=== PATIENT | female | born 1990 | race Caucasian/White ===

== ENCOUNTER 2017-06-07 08:40 | Inpatient (IN) ==
--- OUTSIDE RECORDS SUMMARY | 2017-06-09 10:13 | External Medical Summary | Continuity of Care Document ---
:1990 Author Organization [facility] Address [address] [place], [place] [id number] Phone Care Team Providers Name Role Phone Alek Early DO Unavailable Unavailable Allergies, Adverse Reactions, Alerts Substance Reaction Severity Status No Known Drug Allergies Unknown Active Medications Medication Instructions Dosage Effective Dates Status Comments (start - stop) Tums 200 mg - Active calcium (500 mg) chewable tablet 27 mg-0.8 take 1 tablet by Not Available - Active mg tablet oral route every day albuterol sulfate inhale 2 puff by - Active HFA 90 inhalation route mcg/actuation every 4 - 6 hours as aerosol inhaler needed Zyrtec 10 mg as needed - Active capsule Problems Condition Effective Dates (start - stop) Clinical Status Encounter for suprvsn of normal - , second trimester 24 weeks gestation of - Previous Low Transverse - Encounter for suprvsn of normal - , first trimester 12 weeks gestation of - Maternal care for excess growth, - second tri, unsp 16 weeks gestation of - Irregular Menses Lower abdominal pain, unspecified Previous Low Transverse - Encounter for suprvsn of normal - , second trimester 20 weeks gestation of - Personal history of endo, nutritional - and metabolic disease Previous Low Transverse - Maternal care for excess growth, - second tri, unsp 20 weeks gestation of - Laceration w/o foreign body of vagina and vulva, init encntr 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) w/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 [facility] [place], , second 7 700 [address] [id number] weeks Medical 1522, gestation of [facility], [facility] Kj Anthony, 120, [id number], [facility] [place], tel:[phone] , [place]. tel: [phone] [facility] [place] Previous Low Aug-2 Patel In Womens Transverse 1-201 Yasmine. [facility] [place], C-SectionEncounte 7 700 PO Box r for suprvsn of Medical 1522, normal , [facility], [facility] Kj Anthony, weeks 120, [id number], gestation of [facility] pregnancyPersonal [place], tel:[phone] history of endo, [id number] nutritional and , [place]. metabolic disease tel: [phone] [facility] [place] Previous Low Aug-2 Patel In Womens Ultrasound Transverse 1-201 Yasmine. [facility] [place], C-SectionMaternal 7 700 PO Box care for excess Medical 1522, growth, [facility], [facility] emanuel, Kj Anthony, unsp20 weeks 120, [id number], gestation of [facility] [place], tel:[phone] , [place]. tel: [phone] [facility] [place] Maternal care for Dec-2 Patel In Womens excess 4-201 Yasmine. Health [place], growth, second 7 700 PO Box tri, [email or web address] weeks Medical 1522, gestation of [facility], Kj Anthony, 120, , [place], [place], tel:[phone] , [place]. tel: [phone] [facility] [place] Previous Low Kai-2 Patel In Womens Transverse 6-201 Yasmine. Health [place], C-SectionEncounte 7 700 PO Box r for suprvsn of Medical 1522, normal , [facility], first [id number] Kj Anthony, weeks gestation 120, , of [place], tel:[phone] , [place]. tel: [phone] [facility] [place] Irregular October-2 Roberto In Womens MensesLower 5-201 Gladis. [facility] [place], abdominal pain, 7 700 PO Box unspecified Medical 1522, [place] [facility], Kj Anthony, 120, , [place], [place], tel:[phone] , [place]. tel: [phone] [facility] [place] Laceration w/o Jun- Patel In Womens foreign body of 0-201 Yasmine. [facility] [place], vagina and vulva, 7 700 PO Box init encntr [facility] 1522, [place], Kj Anthony, 120, [id number], [place], tel: [phone] , [place]. tel: [phone] [facility] [place] for meals on wheels driver Kai-2 Patel In Womens exam (general) 4-201 Yasmine. Health [place], (routine) w/o abn 6 700 PO [facility], for initial [facility], prescription of jK Anthony, contraceptive 120, , pillsEncounter [facility] for surveillance [place], tel:+ of other [phone] [facility] , . ounter for tel: surveillance of [phone] other contraceptives [facility] [place] Apr-0 Patel Referring In Womens 3-201 Yasmine. Provider: [facility] [place], 4 700 Alek PO Box Medical [place], 1522, [address] [place], [place], 120, [address], [id number], [facility], Center, tel:[phone] [place], [id number] , . [id number]. tel: tel:[phone] Rosa Isela [place] Jul- Patel Referring In Womens 4-201 Yasmine. Provider: Apolinar BARRERA, 4 700 Alek Gao Medical [place], 1522, Center [address] [place], Kj [place], 120, [address], [id number], [facility], Center, tel:[phone] [place], [id number] , . [id number]. tel: tel:[phone] Family History Family Member Diagnosis Age At Onset Maternal Grandfather Cardiovascular Disease No family history of Breast Cancer No family history of Colon Cancer Maternal Grandmother Lung Disease Mother Lung Disease No family history of Stroke Mother Osteoporosis No family history of Thrombosis No family history of Ovarian Cancer Maternal Grandmother Uterine Cancer Paternal Grandfather Cardiovascular Disease Immunizations Vaccine Date Status Comments Unknown Payers Payer name Insurance type Covered green party ID Authorization(s) Benef[employer] Administrative Systems [facility] CI [id number] [employer] - Medicaid MC [id number] [facility] CI [id number] Social History Type Description Quantity Date Captured Alcohol Use Details No Caffeine Use Details Unknown Tobacco Use Status Smoking Status Former smoker Vital Signs Date / Height Weight BMI Pulse Blood Temperature Respiratory Body Head BMI Time: Rate Pressure Rate Surface Circumference percentile Area 191.70 31.9 106/ lbs 0 mm[Hg] 3:51 kg/m PM eter (2) Chief Complaint And Reason For Visit Unknown Chief Complaint And Reason For Visit Reason For Referral Reason For Referral Unknown Plan Of Care Date Type Action Status Goal Lifestyle education regarding completed diet Appointment Mahsa Lemos BOOKED Future Order: Radiology Order Complete OB Ultrasound > 14 Ordered Weeks ([id number]) Date Type Problem Goal Intervention Status Start Date Unknown. History Of Present Illness Encounter Date Complaint History Of Present Illness This patient has no known history of present illness Functional Status Encounter Date Functional Assessment Cognitive Assessment Unknown Medications Administered Medication Instructions Dosage Effective Dates (start - stop) Status Comments Drug Treatment Unknown Instructions Date Instruction Additional Information HIV and other routine tests risk factors identified by history anticipated course of care nutrition and weight gain counseling, special diet toxoplasmosis precautions (cats / raw meat) exercise indications for ultrasound environmental / work hazards travel tobacco (ask, advise, assess, assist and arrange) alcohol illicit / recreational drugs use of any medications (including supplements, vitamins, herbs, OTC drugs) smoking counseling domestic violence seat belt use genetic testing new ob handbook Zika virus assessment & precautions Giving encouragement to exercise Related to Body mass index 29.0-29.9 Lifestyle education regarding diet Related to Body mass index 29.0-29.9 HIV and other routine tests risk factors identified by history anticipated course of care nutrition and weight gain counseling, special diet toxoplasmosis precautions (cats / raw meat) exercise indications for ultrasound influenza vaccine environmental / work hazards travel tobacco (ask, advise, assess, assist and arrange) alcohol illicit / recreational drugs use of any medications (including supplements, vitamins, herbs, OTC drugs) smoking counseling domestic violence seat belt use genetic testing new ob handbook risks Zika virus assessment & precautions
--- OUTSIDE RECORDS SUMMARY | 2017-06-09 10:13 | External Medical Summary | Continuity of Care Document ---
:1990 Author Organization [facility] Address [address] [place], [place] [phone] Phone Care Team Providers Name Role Phone [...] 10 mg as needed - Active capsule Benadryl 25 mg take 2 capsule by 50 MG - Active capsule oral route every 4 - 6 hours as needed Problems Condition Effective Dates (start - stop) Clinical Status Abnormal ultrasonic finding on - screening of mother Previous Low Transverse - 31 weeks gestation of - Previous Low Transverse - Encounter for suprvsn of normal - , first trimester 12 weeks gestation of - Maternal care for excess growth, - second tri, unsp 16 weeks gestation of - Previous Low Transverse - Encounter for suprvsn of normal - , third trimester 29 weeks gestation of - Irregular Menses Lower abdominal pain, unspecified Abnormal ultrasonic finding on - screening of mother 33 weeks gestation of - Abnormal ultrasonic finding on - screening of mother Previous Low Transverse - Encounter for suprvsn of normal - , third trimester 31 weeks gestation of - Previous Low Transverse - Encounter for suprvsn of normal - , second trimester 20 weeks gestation of - Personal history of endo, nutritional - and metabolic disease Previous Low Transverse - Maternal care for excess growth, - second tri, unsp 20 weeks gestation of - Laceration w/o foreign body of vagina and vulva, init encntr 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 Encounter for initial prescription of contraceptive pills Encounter for surveillance of other - contraceptives Encounter for surveillance of other contraceptives Encounter for suprvsn of normal - , second trimester 24 weeks gestation of - Dysuria - Active Procedures Procedure Date Ultrasnd preg uterus, flwup/repeat Results Test Name Date and Time Measure Units Reference Range Abnormal Flag Comments Unknown Advance Directives Directive Yes / No Effective Date File Name Unknown Encounters Encounter Practice Location Reason(s) Diagnoses Date Provider Care Team Description For Visit Members [facility] Abnormal Nov-2 Patel In Womens ultrasonic 0-201 Yasmine. Apolinar BARRERA, finding on 7 700 PO Box Medical 1522, screening of [facility], [id number] weeks Kj Anthony, gestation of 120, , [place], [place], tel:[phone] , [place]. tel:[phone] Rosa Isela [place] Abnormal Nov-0 [place] Referring In Womens ultrasonic 6-201 Darrian. Provider: Apolinar BARRERA, finding on 7 700 Yasmine Patel PO Box Medical [place], 700 1522, screening of [facility], [address], [address] [place], Low Transverse [address], , C-SectionEncounte 120, [place], r for suprvsn of [place], [place], tel:+ normal , [place], . third [id number], tel:[phone] weeks gestation [place]. [id number] of tel: [phone] [facility] [place] Abnormal Nov-0 Patel In Womens Ultrasound ultrasonic 6-201 Yasmine. Health [place], finding on 7 700 PO Box Medical 1522, screening of [facility], motherPrevious Kj Anthony, Low Transverse 120, [id number], [id number] weeks [place], gestation of [place], tel: , [place]. tel: [phone] [facility] [place] Previous Low Oct-2 Patel In Womens Transverse 0-201 Yasmine. Health [place], C-SectionEncounte 7 700 PO Box r for suprn [facility] 1522, normal , [facility], third [id number] Kj Anthony, weeks gestation 120, , of [facility] JANAE, tel:[phone] , [place]. tel: [phone] [facility] [place] Encounter for Sep-1 Patel In Womens suprvsn of normal 8-201 Yasmine. Health [place], , second 7 700 PO Box [id number] weeks Medical 1522, gestation of [facility], Kj Anthony, 120, [id number], [facility] [place], tel:[phone] , [place]. tel: [phone] [facility] [place] Previous Low Aug-2 Patel In Womens Transverse 1-201 Yasmine. Health [place], C-SectionEncounte 7 700 PO Box r for suprvsn of Medical 1522, normal , [facility], second Kj Anthony, [id number] weeks 120, [id number], gestation of [facility] pregnancyPersonal [place], tel:[phone] history of endo, nutritional and , [place]. metabolic disease tel: [phone] [facility] [place] Previous Low Aug-2 Patel In Womens Ultrasound Transverse 1-201 Yasmine. Health [place], C-SectionMaternal 7 700 PO Box care for excess Medical 1522, growth, [facility], second tri, Kj Anthony, unsp20 weeks 120, [id number], gestation of [facility] [place], tel:[phone] , [place]. tel: [phone] [facility] [place] Maternal care for Mat- Patel In Womens excess 4-201 Yasmine. Health [place], growth, second 7 700 PO Box tri, [id number] weeks Medical 1522, gestation of [facility], Kj Anthony, 120, , [place], tel:[phone] [address] , [place]. tel: [phone] [facility] [place] Previous Low Kai-2 Patel In Womens Transverse 6-201 Yasmine. Health [place], C-SectionEncounte 7 700 PO Box r for suprvsn of Medical 1522, normal , [facility], first [id number] Kj Anthony, weeks gestation 120, [id number], of [place], [place], tel:[phone] , [place]. tel: [phone] [facility] [place] Irregular October- Roberto In Womens MensesLower 5-201 Gladis. Health [place], abdominal pain, 7 700 PO Box unspecified Medical 1522, [address] [place], 120, [id number], [place], [place], tel:[phone] , [place]. tel: [phone] [facility] [place] Laceration w/o Jun- Patel In Womens foreign body of 0-201 Yasmine. Health [place], vagina and vulva, 7 700 PO Box init encntr Medical 1522, [address] [place], 120, [id number], [place], tel:[phone] , [place]. 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 Health [place], (routine) w/o abn 6 700 [facility], for initial [facility] [place], sachi of Kj Anthony, contraceptive 120, [id number], pillsEncounter [facility] for surveillance [place], tel:[phone] of other [phone] [id number] [facility]. ounter for tel: surveillance of [phone] other contraceptives [facility] [place] Sep- Patel Referring In Womens 3-201 Yasmine. Provider: Apolinar BARRERA, 4 700 Alek Box Medical [place], 1522, Center [address] [place], Kj [place], 120, [address], [id number], [facility], Center, tel:[phone] [facility]. [id number]. tel: tel:[phone] [facility] [place] Jul- Patel Referring In Womens 4-201 Yasmine. Provider: Apolinar BARRERA, 4 700 Alek [facility] Medical [place], 1522, Center [address] [place], Kj [place], 120, [address], [id number], [facility], Center, tel:[phone] [facility]. [id number]. tel: tel:[phone] Family History Family Member Diagnosis Age At Onset Maternal Grandfather Cardiovascular Disease No family history of Breast Cancer No family history of Colon Cancer Maternal Grandmother Lung Disease Mother Lung Disease No family history of Stroke Mother Osteoporosis No family history of Thrombosis No family history of Ovarian Cancer Maternal Grandmother Uterine Cancer Paternal Grandfather Cardiovascular Disease Immunizations Vaccine Date Status Comments Tdap completed Source: New Immunization Record Payers Payer name Insurance type Covered democrat ID Authorization(s) [employer] CI [id number] [employer] [place] [employer] - Medicaid MC [id number] [facility] [id number] [employer] [facility] CI [id number] [employer] CI [id number] [employer] [place] [employer] - Medicaid MC [id number] Social History Type Description Quantity Date Captured Unknown Vital Signs Date / Height Weight BMI Pulse Blood Temperature Respiratory Body Head BMI Time: Rate Pressure Rate Surface Circumference percentile Area Unknown Chief Complaint And Reason For Visit Unknown Chief Complaint And Reason For Visit Reason For Referral Reason For Referral Unknown Plan Of Care Date Type Action Status Goal Lifestyle education regarding completed diet Appointment Mahsa Lemos BOOKED Appointment Mahsa Lemos BOOKED Appointment Mahsa Lemos BOOKED Appointment Mahsa Lemos BOOKED Appointment Mahsa Lemos BOOKED Appointment Mahsa Lemos [facility] C/[facility], PPTL BOOKED Future Order: Radiology Order Ultrasound OB Follow-up ([id number]) Ordered Future Order: Radiology Order Complete OB Ultrasound > 14 Ordered Weeks ([id number]) Date Type Problem Goal Intervention Status Start [...]
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
[2017-06-09 10:33] VITALS: BMI 32.6
[2017-06-09] MEDS ORDERED: NOZIN NASAL SWAB NAS ONE (10:33)
[2017-06-09] MEDS ORDERED: CEFAZOLIN PREMIX (MC ONLY) 2 GM/50 ML BAG IV ONE (10:33)
[2017-06-09] MEDS ORDERED: FAMOTIDINE PB 20 MG/50 ML BAG IV ONE (10:33)
[2017-06-09] MEDS ORDERED: CITRIC ACID/SODIUM CITRATE 30ml PO ONE (10:33)
[2017-06-09] MEDS: LR 1,000 ML IV SCH ×2 (10:56→12:31)
[2017-06-09] MEDS ORDERED: FentaNYL 100 MCG/2 ML INJECTION ONE (11:32)
[2017-06-09] MEDS ORDERED: MORPHINE SULFATE PF 5mg/10ml INJ (Duramorph) ONE (11:32)
[2017-06-09] MEDS ORDERED: PHENYLEPHRINE INJ 10 MG/ML VIAL IV ONE (11:34)
[2017-06-09] MEDS ORDERED: ONDANSETRON 4 MG/2 ML INJECTION ONE (11:35)
--- NOTE | 2017-06-09 11:56 | Anesthesia Preoperative Report ---
Anesthesia Epidural/Spinal Rec - Date and Time Date: 06/09/17 Preoperative Diagnosis: Repeat C section Procedure: Plan: Spinal - Vital Signs Vital Signs: Temperature 98.4 F 06/09/17 10:43 Pulse Rate 83 06/09/17 10:43 Respiratory Rate 18 06/09/17 10:43 Blood Pressure 129/69 06/09/17 10:43 Pulse Oximetry 99 06/09/17 10:43 /Para: P:2 - Medictaions & Allergies Inpatient Medications: Current Medications Lactated Ringer's (Lactated Ringers) 1,000 mls @ 999 mls/hr IV .Q1H1M [facility] Last Admin: 06/09/17 10:56 Dose: 999 mls/hr Oxytocin (Pitocin Bolus Bag) 30 unit in 500 mls @ 999 mls/hr IV .Q31M [facility] Stop: 06/09/17 12:15 Allergies/Adverse Reactions: Allergies Allergy/AdvReac Type Severity Reaction Status Date / Time hydrocodone AdvReac Intermediate N/V Verified 06/09/17 10:31 Sulfa (Sulfonamide AdvReac nausea and Verified 06/09/17 10:31 Antibiotics) dizziness - Home Medications Home Medications: Home Medications Medication Instructions Recorded Confirmed Type Docosahexanoic Acid [ Dha] 1 cap PO DAILY #0 cap 03/04/14 History albuterol sulfate HFA 90 1 puff INHALATION Q6H 11/22/16 History mcg/actuation aerosol inhaler Benadryl 05/24/17 History Tylenol 05/24/17 History - Medical History Respiratory: Reports: Asthma (allergy related) Gastrointestional: Reports: Other (IBS) Neuro/Musculoskeletal: Reports: Depression Other History: Reports: Now - Surgical History HEENT Surgeries: Reports: Tonsillectomy, Other (Adenoidectomy) Reproductive Surgery/Treatment: Reports: Section - Social History Smoking Status: Former smoker Second Hand Exposure: No Substance Use Type: does not use Alcohol Intake: former Alcohol Intake Frequency: does not drink Hx Chewing Tobacco Use: No - Pertinent Findings Lab Data: CBC and BMP 06/09/17 10:55 EKG Rhythm: Normal Sinus Rhythm - Physical Exam Respiratory Exam: lungs clear Cardiovascular Exam: regular rate and rhythm - Airway Assessment Mallampati Score: II TMD: 3 Fingerbreadths Neck Extension: good Overall Assessment: may be difficult intubation - ASA ASA Score: 2 - Discussion Discussion: Discussed risks/options/alternatives of anesthesia and questions answered. Patient consents. Nursing pain assessment noted. Anesthesia Discussion: spouse Attestation Statement: Prior to the delivery of any anesthetic medication, I examined the patient, developed the plan, obtained the patient's consent and discussed the risk and benefits of the procedure with the patient/guardian.
[2017-06-09] MEDS: TRANEXAMIC ACID 1,000 MG in NS 100 ML IV ONE (12:10)
[2017-06-09] MEDS ORDERED: SALINE FLUSH 10ml SYRINGE ONE (12:29)
[2017-06-09] MEDS: OXYTOCIN BOLUS BAG 30 UNIT/500 ML ML IV SCH ×2 (12:32→13:02)
[2017-06-09] MEDS ORDERED: NALBUPHINE 10 MG/ML INJECTION IVP PRN (12:46)
[2017-06-09] MEDS ORDERED: METOCLOPRAMIDE 10mg/2ml INJECTION IVP PRN (12:46)
[2017-06-09] MEDS ORDERED: DiphenhydrAMINE 50 MG/ML INJECTION IVP PRN (12:46)
[2017-06-09] MEDS ORDERED: NALOXONE 2 MG/2 ML INJECTION PFS IVP PRN (12:46)
[2017-06-09] MEDS ORDERED: ONDANSETRON 4 MG/2 ML INJECTION IVP PRN (12:46)
[2017-06-09] MEDS ORDERED: ACETAMINOPHEN 500 MG TABLET PO PRN (13:15)
[2017-06-09] MEDS ORDERED: OXYTOCIN DRIP 30 UNIT/500 ML ML IV SCH (13:15)
[2017-06-09] MEDS ORDERED: MEASLES-MUMPS-RUBELLA VACCINE 0.5ml INJECTION SQ ONE (13:15)
[2017-06-09] MEDS ORDERED: HYDROCORTISONE 2.5% CREAM 30gm RECTALLY PRN (13:15)
[2017-06-09] MEDS ORDERED: CALCIUM CARBONATE Chewable 500mg TABLET PO PRN (13:15)
[2017-06-09] MEDS ORDERED: DiphenhydrAMINE 25 MG CAPSULE PO PRN (13:15)
[2017-06-09] MEDS ORDERED: D5LR 1,000 ML IV SCH (13:15)
[2017-06-09] MEDS: IBUPROFEN 800 MG TABLET PO PRN (15:13)
[2017-06-09] MEDS: Oxycodone/Acetaminophen 5/325 1 TAB PO PRN ×2 (16:07→20:50)
[2017-06-09] MEDS: SIMETHICONE 80 MG CHEWABLE TABLET PO SCH ×4 (17:13→23:32)
[2017-06-09] MEDS ORDERED: INFLUENZA VAC QIV 2017-18 (Fluarix*)(>=3yo) 0.5ml IM ONE (17:15)
[2017-06-09] MEDS ORDERED: INFLUENZA VAC. INJ. ADMIN CHARGE INJ ONE (17:18)
--- NOTE | 2017-06-09 18:02 | Anesthesia Postoperative Note ---
- Date and Time Date: 06/09/17 Time: 17:55 - Status Patient Participated in Evaluation: Patient Participated in Person Vital Signs: Temperature 98.0 F 06/09/17 17:05 Pulse Rate 89 06/09/17 17:05 Respiratory Rate 16 06/09/17 17:05 Blood Pressure 111/65 06/09/17 17:05 Pulse Oximetry 98 06/09/17 17:05 Respiratory Function: Airway Patent, Regular Respirations Cardiovascular Function: Regular Pulse Mental Status: Alert and Oriented Pain Intensity: 0 Hydration: Taking PO Fluids Complications During Recover: None Apparent Post Anesthesia Care Notes: moves lower extremeties without problems - Follow-Up Instructions Instructions: Per Surgeon
[2017-06-10] MEDS: IBUPROFEN 800 MG TABLET PO PRN ×3 (00:33→17:19)
[2017-06-10] MEDS: Oxycodone/Acetaminophen 5/325 1 TAB PO PRN ×6 (02:13→23:41)
--- NOTE | 2017-06-10 08:25 | Operative Note ---
DATE OF PROCEDURE 06/09/2017 PREOPERATIVE DIAGNOSES 1. 26-year-old, 4, para 2, at 40 weeks gestational age. 2. Previous x 2. 3. Desires permanent sterilization. POSTOPERATIVE DIAGNOSES 1. 26-year-old 4, para 2 at 40 weeks gestational age. 2. Previous x 2. 3. Desires permanent sterilization. 4. Pelvic adhesions. PROCEDURE 1. Repeat low transverse section. 2. tubal ligation via modified Yuly method. SURGEON Dr. Yasmine Patel CNC MECHANIC Dr. Darrian Kwan ANESTHESIA Spinal by Nathan Blair CRNA COMPLICATIONS None. EBL 800 ml FINDINGS Viable male infant, cephalic OP position, clear fluids, Apgars 8/9, weight 3606 g. The name is undecided at this point. There was a significant amount of adhesions in both the fascial layer as well as adhesions of the omentum to the bladder and peritoneal adhesions to the anterior uterus. There was a large pillar of adhesions from the anterior peritoneum to the anterior mid uterus. Normal-appearing tubes and ovaries. DESCRIPTION OF PROCEDURE The patient was taken to the operating room where anesthesia was obtained. She was placed in the dorsal supine position with a leftward tilt and a Gomes catheter was placed. She was given a dose of tranexamic acid due to her history of hemorrhage with her last . She was prepared and draped in the normal sterile fashion. A skin incision was made through her previous incision which was lower than a typical Pfannenstiel incision. This was carried down to the fascia. The fascia was incised in the midline and extended laterally with the Parada scissors. The tissue was very thickened in this layer. The fascia was elevated and the underlying rectus muscles were dissected off with a scalpel due to the dense adhesions. The peritoneum was entered sharply. The peritoneal adhesions were dissected off of the anterior uterus. Two Susan' s were placed across the large pillar of adhesions. This was transected. Each end of the pillar was ligated with chromic and good hemostasis was noted. The bladder adhesions were carefully dissected off of the anterior uterus with the Metzenbaum scissors. The bladder blade was inserted. The lower uterine segment was incised layer by layer with the scalpel and bluntly extended. I placed the incision a little higher on the uterus than her last due to the history of varicosities of the uterus. Fortunately, we did not encounter those this time. The membranes were ruptured. The infant' s head was delivered atraumatically. The nose and mouth were suctioned. The cord was clamped and cut. The was handed to Dr. Saucedo. The placenta delivered spontaneously. The uterus was exteriorized and cleared of all clots and debris. The uterine incision was closed with running locked O Monocryl. Good hemostasis was noted. The right fallopian tube was identified and carried out to the fimbriae. An avascular segment was ligated with chromic. Each end of the segment was also ligated with chromic. The tube segment was excised with good hemostasis noted. This was repeated on the patient's left fallopian tube. The uterus was returned to the abdomen. The gutters were cleared of all clots and debris. The uterus was still hemostatic. Due to the extensive adhesions we placed a piece of Interceed. The peritoneum was then closed with running 2-0 Vicryl. In the lower half of this area the peritoneum had been obliterated, so I reapproximated the rectus muscles in the midline. Hemostasis was obtained in the rectus muscles with the cautery. The fascia was closed with O Vicryl. Hemostasis was obtained in the subcutaneous tissue with the cautery. The subcutaneous tissue on the superior half of the incision was undermined to help release some of the scar tissue . Madeline's fascia was closed with running 2-0 chromic. The skin was closed with 4-0 Vicryl in a subcuticular manner. Steri- Strips were placed. Sponge, sharp and instrument counts were correct. HAY
--- NOTE | 2017-06-10 08:25 | OB/GYN Progress Note ---
OB-PP Progress Note - General PPD1 Maternal Group B Strep: Negative Maternal blood type: O+ Maternal Rubella Status: Not Immune - Subjective Date: 06/10/17 Lochia: Minimal Pain: controlled Voiding: eric still in place Nausea or Vomiting Present: No - Objective Vital Signs: Last Vital Signs Temp 98.0 F 06/10/17 04:29 Pulse 80 06/10/17 04:29 Resp 16 06/10/17 04:29 BP 115/61 06/10/17 04:29 Pulse Ox 98 06/10/17 04:29 Urine Output: good General: alert and oriented Abdomen: fundus firm, non-tender, soft, non-distended Incision: clean, no erythema, dry, intact Extremities: non-tender Laboratory: Laboratory Results - last 24 hr 06/09/17 06/09/17 06/09/17 10:55 10:55 17:49 WBC 8.6 13.6 H D RBC 4.37 4.17 Hgb 12.0 11.7 L Hct 36.9 35.1 L MCV 84.4 84.2 MCH 27.5 28.1 MCHC 32.5 33.3 RDW Std Deviation 42.7 42.1 Plt Count 164 165 MPV 11.7 11.8 Immature Gran % (Auto) 0.5 Neut % (Auto) 76.2 H Lymph % (Auto) 18.0 L [place] % (Auto) 4.9 Eos % (Auto) 0.2 Baso % (Auto) 0.2 Neut # (Auto) 6.6 Lymph # (Auto) 1.6 [place] # (Auto) 0.4 Eos # (Auto) 0.0 Baso # (Auto) 0.0 Abs Immat Gran (auto) 0.04 H Blood Type O Positive Antibody Screen Negative - Assessment Assessment: Comments: Depression - Plan Plan: routine care DC eric. Restart Prozac.
[2017-06-10] MEDS ORDERED: FLUoxetine 20 MG CAPSULE PO SCH (09:00)
[2017-06-10] MEDS: FLUoxetine 10 MG CAPSULE PO SCH (09:06)
[2017-06-10] MEDS: DOCUSATE CALCIUM 240 MG CAPSULE PO SCH (09:07)
[2017-06-10] MEDS: SIMETHICONE 80 MG CHEWABLE TABLET PO SCH ×4 (09:08→21:18)
[2017-06-10] MEDS: TRANEXAMIC ACID 1,000 MG in NS 100 ML IV ONE (11:00)
[2017-06-10] MEDS: OXYTOCIN BOLUS BAG 30 UNIT/500 ML ML IV SCH (11:01)
[2017-06-10] MEDS: SIMETHICONE 80 MG CHEWABLE TABLET PO PRN ×2 (13:29→15:58)
[2017-06-11] MEDS: Oxycodone/Acetaminophen 5/325 1 TAB PO PRN ×3 (02:13→11:14)
[2017-06-11] MEDS: IBUPROFEN 800 MG TABLET PO PRN ×2 (02:14→10:35)
[2017-06-11] MEDS: FLUoxetine 10 MG CAPSULE PO SCH (08:12)
[2017-06-11] MEDS: DOCUSATE CALCIUM 240 MG CAPSULE PO SCH (08:12)
[2017-06-11] MEDS: SIMETHICONE 80 MG CHEWABLE TABLET PO SCH ×3 (08:12→12:35)
--- NOTE | 2017-06-11 11:21 | OB/GYN Progress Note ---
OB-PP Progress Note - General PPD2 Maternal Group B Strep: Negative Maternal blood type: O+ Maternal Rubella Status: Not Immune - Subjective Date: 06/11/17 Lochia: Minimal Pain: controlled Voiding: voiding - Objective Vital Signs: Last Vital Signs Temp 98.0 F 06/11/17 08:15 Pulse 89 06/11/17 08:15 Resp 18 06/11/17 08:15 BP 100/74 06/11/17 08:15 Pulse Ox 96 06/11/17 03:15 General: alert and oriented Abdomen: fundus firm, non-tender, soft, non-distended Incision: normal, clean, no erythema, intact Extremities: non-tender - Assessment Assessment: Repeat C/S, Depression - Plan Plan: routine care, discharge home, continue PNV
[2017-06-11 12:28] VITALS: BP 124/69; PULSE 86; RESP 16; TEMP 98.2; O2SAT 94
== END 2017-06-11 14:10 | disposition home or self-care (01) | DRG 766 ==
LOC: MC 06-09 10:05
PROVIDERS: ADMIT Obstetrics & Gynecology; ATTEND Obstetrics & Gynecology